=== PATIENT | female | born 2000 | race Caucasian/White ===

== ENCOUNTER 2021-07-07 02:24 | Inpatient (IN) | payer MEDICAID ==
[2021-07-07] MEDS ORDERED: Sodium Chloride 0.9% 10 ML Syringe FLUSH PRN (03:23)
[2021-07-07] MEDS ORDERED: Lidocaine 1% 50 ML MDV INJECT PRN (03:23)
[2021-07-07] MEDS ORDERED: Methylergonovine 0.2 MG/1 ML Amp IM PRN (03:23)
[2021-07-07] MEDS ORDERED: Misoprostol 200 MCG Tab PO PRN (03:23)
[2021-07-07] MEDS ORDERED: Tranexamic Acid 1,000 MG in Sodium Chloride 0.9% 100 ML IV PRN (03:23)
[2021-07-07] MEDS ORDERED: Water For Irrigation,Sterile 1,000 ML Container IRR PRN (03:23)
[2021-07-07] MEDS ORDERED: Sodium Chloride 0.9% 2.5 ML Syringe FLUSH PRN (03:23)
[2021-07-07] MEDS ORDERED: Sodium Chloride 0.9% 20 ML SDV IV PRN (03:23)
[2021-07-07] MEDS ORDERED: Butorphanol 1 MG/ML SDV IVPUSH PRN (03:23)
[2021-07-07] MEDS ORDERED: Carboprost Tromethamine 250 MCG/1 ML Amp IM PRN (03:23)
[2021-07-07] MEDS ORDERED: Terbutaline 1 MG/ML SDV SUBCUT PRN (03:23)
[2021-07-07] MEDS ORDERED: Ondansetron 4 MG/2 ML SDV IVPUSH PRN (03:23)
[2021-07-07] MEDS ORDERED: Oxytocin/0.9 % Sodium Chloride 30 UNIT/500 ML BAG IV SCH ×2 (03:30)
[2021-07-07] MEDS: Lactated Ringers 1,000 ML IV SCH ×2 (04:03→06:57)
[2021-07-07] MEDS ORDERED: Ropivacaine 100 ML ONE (05:27)
[2021-07-07] MEDS ORDERED: Bupivacaine 0.25% 10 ML SDV ONE (05:27)
[2021-07-07] MEDS ORDERED: ePHEDrine 50 MG/ML SDV IVPUSH PRN (06:05)
[2021-07-07] MEDS ORDERED: Ropivacaine 200 MG in Premix Bag 1 BAG EPIDUR SCH (06:15)
[2021-07-07] MEDS ORDERED: Ibuprofen 800 MG Tab PO PRN (15:21)
[2021-07-07] MEDS ORDERED: Acetaminophen 500 MG Tab PO PRN (15:21)
[2021-07-07] MEDS ORDERED: Docusate Sodium 100 MG Cap PO PRN (15:21)
[2021-07-07] MEDS ORDERED: Lanolin 100% Cream 7 GM Tube TOP PRN (15:21)
[2021-07-07] MEDS ORDERED: Bisacodyl 10 MG Supp RECTAL PRN (15:21)
[2021-07-07] MEDS ORDERED: Benzocaine/Menthol 20%-0.5% Spray 78 GM Cannister TOP PRN (15:21)
[2021-07-07] MEDS ORDERED: Witch Hazel Medicated Pads 40/Jar TOP PRN (15:21)
[2021-07-07] MEDS ORDERED: oxyCODONE 5 MG Tab PO PRN (15:21)
[2021-07-07] MEDS ORDERED: Measles, Mumps & Rubella Vaccine 0.5 ML SDV SUBCUT ONE (15:29)
== END 2021-07-08 18:10 | disposition home or self-care (01) | DRG 807 ==
LOC: MW.OBCHECK 02:24 → MW.OB 02:25 → MW.OBCHECK 03:29 → OBSVTOIN 15:21 → MW.OB 19:30
PROVIDERS: ADMIT Obstetrics & Gynecology; ATTEND Obstetrics & Gynecology
PROC: 10D07Z6 Extraction of Products of Conception, Vacuum, Via Natural or Artificial Opening (ICD-10-PCS; principal; 2021-07-07)
PROC: 3E0R3BZ Introduction of Anesthetic Agent into Spinal Canal, Percutaneous Approach (ICD-10-PCS; 2021-07-07)
PROC: 00HU33Z Insertion of Infusion Device into Spinal Canal, Percutaneous Approach (ICD-10-PCS; 2021-07-07)
PROC: 0HQ9XZZ Repair Perineum Skin, External Approach (ICD-10-PCS; 2021-07-07)
DX: O99.02 Anemia complicating childbirth (principal); Z37.0 Single live birth; Z3A.39 39 weeks gestation of pregnancy; O77.0 Labor and delivery complicated by meconium in amniotic fluid; O70.0 First degree perineal laceration during delivery; D64.9 Anemia, unspecified; O75.81 Maternal exhaustion complicating labor and delivery; Z20.822 Contact with and (suspected) exposure to COVID-19
CPT/HCPCS: 01967; 36415; 59025; 59409; 82803; 85014; 85018; 85027; 86592; 86850; 86900; 86901; A9270-GY; J2001; J2590; J2795; J3490; J7120; U0002